=== PATIENT | female | born 1965 | race Caucasian/White ===

== ENCOUNTER → 2021-01-24 | Day surgery (SDC) | payer BC, OTHER ==
[~2021-01-24] VITALS: Ht 165.1 cm; Wt 52.2 kg
[2021-01-24 13:19] VITALS: BP 101/51
--- NOTE | 2021-01-24 15:38 | EKG ---
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: SBUL : 1965 Requested By: Thee David Order Number: [id number] : Elpidio Duarte Measurements Intervals [place] Rate: 51 P: 72 TX: 141 QRS: 45 QRSD: 123 T: 0 QT: 447 QTc: 412 Interpretive Statements Sinus rhythm Nonspecific intraventricular conduction delay Borderline T abnormalities, inferior leads Minimal ST elevation, lateral leads No previous ECG available for comparison Electronically Signed On 01-24-2021 15:37:49 CDT by Elpidio Duarte [email or web address] <ELECTRONICALLY SIGNED> By: Elpidio Duarte MD, [facility] 01/24/21 1537 1303 130 Elpidio Duarte MD, FACC /EPI
[2021-01-24 17:06] VITALS: BP 101/51
--- NOTE | 2021-01-25 14:39 | O ---
[address] [address] OPERATIVE REPORT Name: RAKESH LOVE Room #: REG [facility]#: [id number] Admission: 01/24/21 Attend Phys: Thee David MD Discharge: Date of : 63 Report #: [id number] THIS REPORT FOR: cc: FAM - Family physician unknown FAM - Family physician unknown Thee David MD ~ DATE OF SERVICE: 01/24/2021 SERVICE: Orthopedics. FACILITY: [facility]. SURGEON: Thee David MD LEAD RIDER: Martha Palma. PREOPERATIVE DIAGNOSES: 1. Left hip pain. 2. Left hip femoral acetabular impingement. 3. Left hip labral tear. 4. Left hip chondromalacia. POSTOPERATIVE DIAGNOSES: 1. Left hip pain. 2. Left hip femoral acetabular impingement. 3. Left hip labral tear. 4. Left hip chondromalacia. 5. Left hip loose body. PROCEDURES: 1. Left hip arthroscopic labral repair. 2. Left hip arthroscopic Cam osteochondroplasty. 3. Left hip arthroscopic loose body removal. COMPLICATIONS: None. DRAINS: None. SPECIMENS: None. ANESTHESIA: General with regional. FINDINGS: 1. Bertram CinchLock suture anchor x3 for labral repair. 2. 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 [address] [address] OPERATIVE REPORT Name: RAKESH LOVE Room #: REG [facility]#: [id number] Admission: 01/24/21 Attend Phys: Thee David MD Discharge: Date of : 63 Report #: [id number] 3. Grade 2 and 3 chondromalacia of the medial femoral head and anterior acetabulum, both treated with chondroplasty. No full thickness articular cartilage lesions noted. 4. Multiple small chondral loose bodies, largest measuring approximately 5 mm x 5 mm x 2 mm. In total, approximately 3 dozen chondral loose bodies, all removed with the shaver. 5. Capsular repair with #2 Vicryl x4. HISTORY: The patient is a 55-year-old female with history of persistent progressive left hip pain that has failed with extensive conservative measures including rest, activity modification and physical therapy, oral medications, modalities and intraarticular injection. She had temporary pain relief with intraarticular injection, but relief was not sustained. She had imaging consistent with symptomatic femoral acetabular impingement with an alpha angle of approximately 60 degrees. Well maintained joint space with Ton[place] grade of 1 and closed these with a minimal crossover sign. MRI showed a full thickness anterior labral tear as well as chondromalacia. We had a discussion about treatment options, specifically related to her condition, her demographic and the presence of the chondromalacia. She did not have significant enough pathology to warrant arthroplasty. The risks, benefits, alternatives and indications for surgery discussed. Risks include, but not limited to pain, bleeding, infection, injuring nerves or blood vessels, persistent pain despite surgical intervention, failure of any repairs, progression of preexisting chondral injury, stiffness, need for further surgery as well as complications related to anesthesia. Despite the risks, she wished to proceed. PROCEDURE IN DETAIL: After left lower extremity was correctly identified in the preoperative holding area as the operative extremity, the patient underwent regional nerve block. She was then taken to the operating room where general anesthesia was induced without complication. She was padded appropriately. Prophylactic antibiotics were administered at appropriate time. Left hip femoral head and neck junction was mapped out under fluoroscopy to identify the extent of the Cam deformity and then the left hip was prepped and draped in standard sterile fashion. Timeout procedure performed. Traction was applied. Standard anterolateral viewing portal was established under fluoroscopy and then anteromedial working portal was established as well. Under fluoroscopy and arthroscopic visualization, there was significant erythema and capsulitis, which will be the indication for continuous passive motion machine used as postoperatively in order to reduce the risk of scarring and adhesions, as these can be reasons for reoperation in this patient population. Transverse capsulotomy was performed. The intraarticular findings were noted as stated above. The shaver was used to perform initial synovectomy as well as a chondroplasty and the large number of chondral loose bodies were debrided with the shaver and resected from the hip. She had a stellate pattern of articular cartilage pathology on the medial femoral head that was all partial thickness. [address] [address] OPERATIVE REPORT Name: RAKESH LOVE Room #: REG [facility] M.R.#: [id number] Admission: 01/24/21 Attend Phys: Thee David MD Discharge: Date of : 63 Report #: [id number] There were no full thickness lesions. A limited chondroplasty was performed of the femoral head. Most of the pathology was present, but stable. The acetabular-sided pathology was at the anterior aspect of the acetabulum at the chondral labral junction primarily, then the majority of it was not revealed until after the detached anterior labral tear that had been reduced to its anatomic position and stabilized. Capsule was reflected off the dorsal side of the labrum allowing access to the acetabular-sided pathology. There was some early calcification of the base of the labrum until an elevator was used to gently dissect the labrum off of the acetabular rim and then the bur was used to perform a limited rim acetabuloplasty just taking off this portion of the acetabular rim that was early calcification of the labrum. There was minimal work required at the subspine region and after the bony work was completed, we proceeded with labral repair. AgentBridge CinchLock suture anchor x3 was applied; the first 2 through the anterior medial portal, the third through the anterolateral portal and cerclage sutures were used to perform an anatomic reduction of the labrum against the acetabular rim. Shaver was used to complete a final chondroplasty as well as partial synovectomy of the pulmonary synovitis and then traction was let down. The hip was flexed up. Attention was turned towards the peripheral compartment. Transverse capsulotomy was extended down in the neck in a T fashion allowing access to the entire Cam deformity. We completed the Cam resection, removed the instruments, brought C-arm in and assessed the resection and identified some additional bone that needed to be resected, ultimately identifying bone distally, anteriorly as well as over the lateral shoulder. After all this bone was resected, final x-rays were taken. Instruments were placed back into the hip final time. The bony debris was lavaged out the hip. Then, a T-shaped capsulotomy was closed with total of four #2 Vicryl sutures. Instruments were removed. Portal sites were closed. Sterile dressing was applied. The patient was awakened from anesthesia and taken to recovery room in stable condition. No complications. All counts were recorded as correct. <ELECTRONICALLY SIGNED> By: Thee David MD 01/25/21 [id number] Thee David MD /adelaide
== END | disposition home or self-care (01) ==
LOC: OR 12:09
PROVIDERS: ATTEND Orthopaedic Surgery Sports Medicine
DX: M25.552 Pain in left hip (principal); M25.852 Other specified joint disorders, left hip; M94.252 Chondromalacia, left hip; M24.052 Loose body in left hip; S73.102A Unspecified sprain of left hip, initial encounter; Z98.890 Other specified postprocedural states; Z87.891 Personal history of nicotine dependence; Z20.822 Contact with and (suspected) exposure to COVID-19; Z79.899 Other long term (current) drug therapy; X58.XXXA Exposure to other specified factors, initial encounter; Y93.89 Activity, other specified; Y92.89 Other specified places as the place of occurrence of the external cause; Y99.8 Other external cause status
CPT/HCPCS: 50010; 50101; 50386; 51320; 51538; 52304; 52313; 56524; 56527; 57092; 57103; 58273; 58274; 58557; 58558; 58559; 58560; 58561; 58562; 58563; 58564; 58608; 62110; 62900; 70005